=== PATIENT | female | born 1980 | race Caucasian/White ===

== ENCOUNTER 2018-08-19 19:09 | Emergency (ER) | payer OTHER ==
[2018-08-19 19:31] VITALS: BP 140/76; PULSE 75; RESP 20; TEMP 98.9
[2018-08-19] MEDS ORDERED: predniSONE 50 MG TAB PO STA (19:52)
[2018-08-19] MEDS ORDERED: AZITHROMYCIN 500 MG TAB PO STA (19:52)
--- NOTE | 2018-08-19 19:54 | ED ---
General Adult HPI - General Chief complaint: Upper Respiratory Infection Stated complaint: Sinus infection Time Seen by Provider: 08/19/18 19:35 Source: patient, family Mode of arrival: ambulatory Limitations: no limitations - History of Present Illness Initial comments: 38-year-old female patient presents to the emergency department today for evaluation of sinus congestion and facial pressure. Patient states she's had symptoms for the last 4 days. States her nasal drainage is green. She denies any sore throat or cough with this. Denies any fevers or chills. States several coworkers are sick with similar symptoms. States she does have a history of sinus infection and this feels similar. Patient denies any recent rash, fever, chills, shortness breath, chest pain, abdominal pain, nausea, vomiting, diarrhea, constipation, back pain, numbness, tingling, dizziness, weakness, hematuria, dysuria, urinary urgency, urinary frequency, headache, v isual changes, or any other complaints. - Related Data Home Medications Medication Instructions Recorded Confirmed Fluticasone Nasal [place] [Flonase 2 spr EA NOSTRIL DAILY PRN 08/19/18 08/19/18 Nasal [place]] Previous Rx's Medication Instructions Recorded Azithromycin [Zithromax Z-pack] 0 mg PO DIRECTED #6 tab 08/19/18 methylPREDNISolone [Medrol Dose 4 mg PO DIRECTED #1 pack 08/19/18 Pack] Allergies Allergy/AdvReac Type Severity Reaction Status Date / Time No Known Allergies Allergy Verified 08/19/18 20:03 Review of Systems ROS Statement: Those systems with pertinent positive or pertinent negative responses have been documented in the HPI. ROS Other: All systems not noted in ROS Statement are negative. Past Medical History Past Medical History: No Reported History History of Any Multi-Drug Resistant Organisms: None Reported Past Surgical History: Breast Surgery Past Anesthesia/Blood Transfusion Reactions: No Reported Reaction Past Psychological History: Panic Disorder Smoking Status: Former smoker Past Alcohol Use History: None Reported Past Drug Use History: None Reported General Exam Limitations: no limitations General appearance: alert, in no apparent distress, other (Physical well- developed, well-nourished adult female patient in no acute distress. Vital signs upon presentation are temperature 98.9F, pulse 75, respirations 20, blood pressure 140/76, pulse ox 97% on room air.) Eye exam: Present: normal appearance, PERRL, EOMI. Absent: scleral icterus, conjunctival injection, periorbital swelling ENT exam: Present: normal exam, normal oropharynx, mucous membranes moist, TM's normal bilaterally, other (Maxillary and frontal sinus tenderness) Neck exam: Present: normal inspection. Absent: tenderness, meningismus, lymphadenopathy Respiratory exam: Present: normal lung sounds bilaterally. Absent: respiratory distress, wheezes, rales, rhonchi, stridor Cardiovascular Exam: Present: regular rate, normal rhythm, normal heart sounds. Absent: systolic murmur, diastolic murmur, rubs, gallop, clicks Neurological exam: Present: alert, oriented X3, CN II-XII intact Psychiatric exam: Present: normal affect, normal mood Skin exam: Present: warm, dry, intact, normal color. Absent: rash Course Vital Signs 08/19/18 19:27 Temperature 98.9 F Pulse Rate 75 Respiratory 20 Rate Blood Pressure 140/76 O2 Sat by Pulse 97 Oximetry Medical Decision Making - Medical Decision Making 38-year-old female patient presented to the emergency department today for evaluation of sinus congestion and drainage. Physical examination did reveal frontal and maxillary sinus tenderness. She is afebrile. She will be treated with azithromycin and prednisone. She is instructed to use [id number] nasal decongestants for symptom relief. She is instructed to follow-up with her primary care physician for recheck in 1-2 days. Return parameters discussed in detail. She verbalizes understanding and agrees with this plan. Disposition Clinical Impression: Sinusitis Disposition: HOME SELF-CARE Condition: Good Instructions (If sedation given, give patient instructions): Sinusitis (ED) Additional Instructions: Complete medications as directed. Follow-up with your primary care physician for recheck in 1-2 days. Return to the emergency department immediately for any new, worsening, or concerning symptoms. Prescriptions: methylPREDNISolone [Medrol Dose Pack] 4 mg PO DIRECTED #1 pack Azithromycin [Zithromax Z-pack] 0 mg PO DIRECTED #6 tab Is patient prescribed a controlled substance at d/c from ED?: No Referrals: Yeison Cordova MD [Primary Care Provider] - 1-2 days Time of Disposition: 19:54
== END 2018-08-19 20:47 | disposition home or self-care (01) ==
LOC: SUPCPDRO 19:09 → EC 19:09
DX: J32.9 Chronic sinusitis, unspecified (principal); Z87.891 Personal history of nicotine dependence
CPT/HCPCS: 99283; J7512

== ENCOUNTER → 2018-10-13 | Outpatient (CLI) | payer OTHER ==
[2018-10-13 09:10] LABS: Basophils # (A) 0.1 k/uL (0-0.2); Basophils % (A) 1 %; Eosinophils # (A) 0.1 k/uL (0-0.7); Eosinophils % (A) 2 %; HCT 41.2 % (34.0-46.0); HGB 12.9 gm/dL (11.4-16.0); Hypochromasia Slight; Lymphocytes # (A) 1.9 k/uL (1.0-4.8); Lymphocytes % (A) 33 %; MCH 24.4 pg (25.0-35.0); MCHC 31.3 g/dL (31.0-37.0); MCV 77.9 fL (80.0-100.0); Mean Platelet Volume 6.9; Monocytes # (A) 0.3 k/uL (0-1.0); Monocytes % (A) 5 %; Neutrophils # (A) 3.3 k/uL (1.3-7.7); Neutrophils % (A) 57 %; Platelet Count 240 k/uL (150-450); RBC 5.28 m/uL (3.80-5.40); RDW 14.8 % (11.5-15.5); WBC 5.8 k/uL (3.8-10.6)
[2018-10-13 16:03] LABS: Anti-DNA, DS unit <1.0 IU/mL; DNA Double-Stranded NEGATIVE (NEGATIVE); RNP 0.9 AI; Scleroderma SC-70 Ab <0.2 AI
[2018-10-13 16:30] LABS: Albumin 4.3 g/dL (3.80-4.90); Albumin/Globulin Ratio 2.26 (1.60-3.17); Anion Gap 5.8 mmol/L (4.00-12.00); Calcium 8.9 mg/dL (8.7-10.3); Carbon Dioxide 23.2 mmol/L (21.6-31.8); Globulin 1.9 g/dL (1.6-3.3); LDL Cholesterol,Calculated 81.4 mg/dL (0.0-131.0); Potassium 5.1 mmol/L (3.5-5.5); Total Bilirubin 0.3 mg/dL (0.2-1.2); Total Protein 6.2 g/dL (6.2-8.2); VLDL Calculation 18.6 mg/dL (5.00-40.00)
[2018-10-14 13:38] LABS: Smooth Muscle Antibody 5 UNITS (<20)
[2018-10-14 14:28] LABS: C-ANCA <1:20 Titer (<1:20); P-ANCA <1:20 Titer (<1:20)
== END | disposition home or self-care (01) ==
LOC: LABWHC1 08:47
PROVIDERS: ATTEND Family Medicine
DX: Z00.01 Encounter for general adult medical examination with abnormal findings (principal); E55.9 Vitamin D deficiency, unspecified; M19.90 Unspecified osteoarthritis, unspecified site
CPT/HCPCS: 36415; 80053; 80061; 82306; 83516; 84443; 85025; 86038; 86225; 86235; 86255

== ENCOUNTER 2021-03-04 10:24 | Emergency (ER) | payer OTHER ==
--- NOTE | 2021-03-04 10:57 | ED ---
General Adult HPI - General Stated complaint: Leg pain/post bug bite Time Seen by Provider: 03/04/21 10:55 Source: patient, RN notes reviewed Mode of arrival: ambulatory Limitations: no limitations - History of Present Illness Initial comments: this is a 40-year-old female presents emergency Department chief complaint of abscess to her right thigh. Patient states this started a few days ago and was started on Bactrim at [facility] 3 days ago. Patient states it feels like it worse. Patient denies any known fevers or chills. No history of skin infections. No drainage. - Related Data Home Medications Medication Instructions Recorded Confirmed Fluticasone Nasal [place] [Flonase 2 spr EA NOSTRIL DAILY PRN 08/19/18 08/19/18 Nasal [place]] Previous Rx's Medication Instructions Recorded Azithromycin [Zithromax Z-pack (6 0 mg PO DIRECTED #6 tab 08/19/18 tabs)] methylPREDNISolone [Medrol Dose 4 mg PO DIRECTED #1 pack 08/19/18 Pack] Allergies Allergy/AdvReac Type Severity Reaction Status Date / Time No Known Allergies Allergy Verified 03/04/21 10:59 Review of Systems ROS Statement: Those systems with pertinent positive or pertinent negative responses have been documented in the HPI. ROS Other: All systems not noted in ROS Statement are negative. Past Medical History Past Medical History: No Reported History History of Any Multi-Drug Resistant Organisms: None Reported Past Surgical History: Breast Surgery Past Anesthesia/Blood Transfusion Reactions: No Reported Reaction Past Psychological History: Panic Disorder Past Alcohol Use History: None Reported Past Drug Use History: None Reported Course Vital Signs 03/04/21 10:55 Temperature 98.6 F Pulse Rate 65 Respiratory 18 Rate Blood Pressure 117/58 O2 Sat by Pulse 100 Oximetry Medical Decision Making - Medical Decision Making patient was seen in triage, patient left prior to evaluation. Disposition Clinical Impression: Abscess of leg, right Disposition: Left Against Medical Advice Referrals: Yeison Cordova MD [Primary Care Provider] - 1-2 days
[2021-03-04 10:59] VITALS: BP 117/58; PULSE 65; RESP 18; TEMP 98.6
== END 2021-03-04 11:12 | disposition left against medical advice (07) ==
LOC: EC 10:24
DX: L02.415 Cutaneous abscess of right lower limb (principal)
CPT/HCPCS: 99282

== ENCOUNTER 2021-03-06 09:02 | Emergency (ER) | payer OTHER ==
[2021-03-06 09:22] VITALS: BP 118/66; PULSE 68; RESP 16; TEMP 98.3
== END 2021-03-06 10:12 | disposition left against medical advice (07) ==
LOC: EC 09:02
DX: Z53.21 Procedure and treatment not carried out due to patient leaving prior to being seen by health care provider (principal)
CPT/HCPCS: 99499